=== PATIENT | female | born 1990 | race Caucasian/White ===

== ENCOUNTER 2018-12-09 09:48 | Emergency (ER) | payer OTHER ==
[~2018-12-09] VITALS: Ht 149.9 cm; Wt 74.8 kg
[2018-12-09 09:58] VITALS: BP 121/74; Ht 149.9 cm; Wt 74.8 kg
== END 2018-12-09 13:00 | disposition left against medical advice (07) ==
LOC: ED 09:48
DX: Z53.21 Procedure and treatment not carried out due to patient leaving prior to being seen by health care provider (principal)